=== PATIENT | female | born 1960 | race African-American/Black ===

== ENCOUNTER 2018-07-15 15:16 | Inpatient (IN) | END 2018-07-17 13:40 | disposition home or self-care (01) | DRG 190 ==

== ENCOUNTER 2018-09-14 11:17 | Emergency (ER) | END 2018-09-14 13:21 | disposition home or self-care (01) ==

== ENCOUNTER 2019-04-13 16:25 | Emergency (ER) | payer OTHER, MEDICAID ==
[~2019-04-13] VITALS: Ht 157.5 cm; Wt 46.0 kg
[~2019-04-13 16:25] MED LIST: ABAC1TAB12 PO; ASPI81TA52 PO; BISA5TAB6 PO; BUPR150T18 PO; CALC600T24 PO; DOCU-159 PO; ESTR10TA6 VG; FLUT200B INHALATION; HYDR-3980 PO; IBUP-1561 PO; MIRT30TA5 PO; TIOT18CA INHALATION; TRAZ-111 PO; VALA500T PO
[2019-04-13 16:28] VITALS: BP 117/78; PULSE 84; RESP 18; Ht 157.5 cm; Wt 46.0 kg
[2019-04-13] MEDS ORDERED: KETOROLAC 30 MG INJ IM STA (17:38)
--- NOTE | 2019-04-13 17:42 | ERD ---
ER Documentation Chief Complaint Chief Complaint SWELLING AND BURNING ON GENITAL AREA X FEW MONTHS HPI 58-year-old female HIV-positive is here for chronic swelling of her vaginal region. She states is been going on for several years. She denies being sexually active. The area is very tender and swollen. She states she is tried antibiotics and other medicinal creams which have helped slightly but the area is never gone away. She is never seen an E[employer] SALES REPRESENTATIVE for this. ROS All systems reviewed and are negative except as per history of present illness. Medications Home Meds Active Scripts Hydrocodone/Acetaminophen ([place] 10-325 Tablet) 1 Each Tablet, 1 TAB PO Q6H PRN for PAIN, #15 TAB Prov:BARBARA MORAN MD 09/14/18 Ibuprofen* (Motrin*) 400 Mg Tab, 400 MG PO Q6, #20 TAB Prov:BARBARA MORAN MD 09/14/18 Reported Medications Fluticasone Furoate (Arnuity Ellipta) 200 Mcg Blst.w.dev, 200 MCG INHALATION DAILY, #1 INHALER 07/15/18 Docusate Sodium* (Docusate Sodium*) 100 Mg Capsule, 100 MG PO BID, #60 CAP 07/15/18 Abacavir/Dolutegravir/Lamivudi (Triumeq Tablet) 1 Each Tablet, 1 EACH PO DAILY, TAB 07/15/18 valAcyclovir Hcl* (valACYclovir Hcl*) 500 Mg Tablet, 1000 MG PO DAILY, TAB 07/15/18 Mirtazapine* (Mirtazapine*) 30 Mg Tablet, 30 MG PO HS, TAB 07/15/18 Bupropion Hcl* (Bupropion Hcl SR*) 150 Mg Tablet.er, 150 MG PO BID, TAB.SA 07/15/18 Aspirin (Low Dose Aspirin) 81 Mg Tablet.dr, 81 MG PO DAILY, #30 TAB 07/15/18 Trazodone Hcl* (Trazodone Hcl*) 50 Mg Tablet, 50 MG PO BID, #60 TAB 07/15/18 Tiotropium Quincy* (Spiriva*) 18 Mcg Cap.w.dev, 1 CAP INHALATION DAILY, #30 CAP 07/15/18 Estradiol (Yuvafem) 10 Mcg Tablet, 10 MCG VG TWICE WEEKLY, TAB 07/15/18 Bisacodyl* (Bisacodyl*) 5 Mg Tablet.dr, 5 MG PO DAILY, TAB 07/15/18 Calcium Carbonate* (Calcium Carbonate*) 600 MG Ca Tab, 600 MG PO DAILY, TAB 07/15/18 Allergies Allergies: Coded Allergies: Penicillins (Verified Allergy, Unknown, 09/14/18) codeine (Verified Allergy, Unknown, 09/14/18) PMhx/Soc History of Surgery: Yes (RESECTION FOR COLON CANCER AND HYSTERECTOMY) Anesthesia Reaction: No Hx Neurological Disorder: No Hx Respiratory Disorders: Yes (EMPHYSEMA) Hx Cardiac Disorders: Yes (HX OF HTN) Hx Psychiatric Problems: No Hx Miscellaneous Medical Probl: No Hx Alcohol Use: No Hx Substance Use: Yes (MARIJUANA SMOKER) FmHx Family History: No diabetes Physical Exam Vitals Vital Signs Date Temp Pulse Resp B/P (MAP) Pulse Ox O2 O2 Flow FiO2 Time Delivery Rate 04/13/19 98.4 84 18 117/78 99 16:28 (91) Physical Exam Const: No acute distress Head: Atraumatic Eyes: Normal Conjunctiva ENT: Normal External Ears, Nose and Mouth. Neck: Full range of motion. No meningismus. Resp: Clear to auscultation bilaterally Cardio: Regular rate and rhythm, no murmurs : Performed with female trials manager CASPER montalvo and Arsalan SAUNDERS, vaginal swelling with hypopigmented skin and excoriations, multiple ulcerated lesions and labia minora is larger than the labia majora, no purulent drainage or bleeding Procedures/MDM This patient has chronic swelling of her vagina. Both myself and my supervising physician examined the patient. It is possible this could be chronic herpes however patient denies being sexually active for multiple years. No evidence of acute cellulitis or infection. Patient needs to be follow-up by [employer] SALES REPRESENTATIVE for biopsy of the skin to rule out any malignant cause. She was given Toradol and [place] here. Discharged with acyclovir and [place]. Patient counseled regarding my diagnostic impression and care plan. Prior to discharge all questions answered. Pt agrees with treatment plan and understands strict return precautions. Pt is instructed to follow up with primary care provider within 24- 48 hours. Precautionary instructions provided including instructions to return to the ER if not improving or for any worsening or changing symptoms or concerns. Departure Diagnosis: Primary Impression: Pain of female genitalia Condition: Stable NIURKA LAURENT PA-C Apr 13, 2019 17:42
[2019-04-13] MEDS ORDERED: HYDR-4011 PO (17:44)
[2019-04-13] MEDS ORDERED: ACYC800T PO (17:44)
[2019-04-13] MEDS ORDERED: VALA500T PO (17:46)
[2019-04-13] MEDS ORDERED: HYDROCODONE/APAP (5/325) TAB PO ONE (18:00)
== END 2019-04-13 17:54 | disposition home or self-care (01) ==
LOC: FTE 16:25
DX: N94.89 Other specified conditions associated with female genital organs and menstrual cycle (principal); I10 Essential (primary) hypertension; Z21 Asymptomatic human immunodeficiency virus [HIV] infection status; Z79.82 Long term (current) use of aspirin
CPT/HCPCS: 96372; 99284; J1885